=== PATIENT | female | born 2000 | race Caucasian/White ===

== ENCOUNTER 2023-03-23 09:55 | Emergency (ER) | payer OTHER ==
[~2023-03-23] VITALS: Ht 162.6 cm; Wt 84.4 kg
== END 2023-03-23 12:21 | disposition home or self-care (01) ==
LOC: ER 09:55
DX: S31.159A Open bite of abdominal wall, unspecified quadrant without penetration into peritoneal cavity, initial encounter (principal); W54.0XXA Bitten by dog, initial encounter; Y93.9 Activity, unspecified; Y92.89 Other specified places as the place of occurrence of the external cause; Y99.9 Unspecified external cause status
CPT/HCPCS: 90471; 90714; J1670